=== PATIENT | female | born 1980 | race Caucasian/White ===

== ENCOUNTER 2016-08-15 12:20 | Emergency (ER) | payer BC ==
--- NOTE | 2016-08-15 12:59 | Emergency Department Record ---
History of Present Illness - General Chief Complaint: Hypertension Stated Complaint: HIGH BP Time Seen by Provider: 08/15/16 12:46 Source: Patient Mode of Arrival: Ambulatory Limitations: No limitations - History of Present Illness Initial Comments: The patient is here due to not feeling well today and finding her BP quite elevated. It was 175/120 at work today. The patient does have an extensive hx of HTN and was at one point on 3 different medicines for it. She recently stopped Norvasc and yesterday started on Adipex. She denies any CP, SOB, or DANNY but has had R hand tingling for one day. There has been no reported visual changes but she does have a mild RUIZ. The patient did take an Xanax prior to getting here to [facility]. The patient has been on Adipex in the past but had been on 2 or 3 HTN medicines at that time where now she is only on one. The patient states her BP is normally 150's/90. MD Complaint: Lightheadedness Onset/Timin -: Days(s) Timing: Gradual onset Description: Other History of Same: No History of Trauma: No Associated Symptoms: Other - [place] Coma Scale Eye Response: (4) Open spontaneously Motor Response: (6) Obeys commands Verbal Response: (5) Oriented [place] Total: 15 - Related Data Home Medications Medication Instructions Recorded Confirmed Last Taken Alprazolam [Xanax] 0.25 mg PO Q8H 08/15/16 08/15/16 08/15/16 Levothyroxine Sodium [Synthroid] 300 mcg PO DAILY 08/15/16 08/15/16 08/15/16 Losartan Potassium [Cozaar] 100 mg PO DAILY 08/15/16 08/15/16 08/15/16 Sertraline HCl [Zoloft] 50 mg PO DAILY 08/15/16 08/15/16 08/15/16 Previous Rx's Medication Instructions Recorded Amlodipine Besylate [Norvasc] 10 mg PO DAILY #30 tab 08/15/16 Allergies Allergy/AdvReac Type Severity Reaction Status Date / Time No Known Drug Allergies Allergy Verified 08/15/16 12:35 Travel Screening - Travel/Exposure Within Last 30 Days Have you traveled within the last 30 days?: No - Travel/Exposure Within Last Year Have you traveled outside the [place] in the last year?: No - Additonal Travel Details Have you been exposed to anyone with a communicable illness?: No - Travel Symptoms Symptom Screening: None Review of Systems Constitutional: Denies: Chills, Fever Eyes: Denies: Eye discharge ENT: Denies: Congestion Respiratory: Denies: Cough, Dyspnea Past Medical History - SOCIAL HISTORY Smoking Status: Never smoker Alcohol Use: Rare Drug Use: None - RESPIRATORY Hx Respiratory Disorders: No - CARDIOVASCULAR Hx Cardio Disorders: Yes Hx Hypertension: Yes - NEURO Hx Neuro Disorders: Yes Hx Headaches: Yes - GI Hx GI Disorders: No - Hx Genitourinary Disorders: No - ENDOCRINE Hx Endocrine Disorders: Yes Hx Diabetes: No Hx Thyroid Disease: Yes - MUSCULOSKELETAL Hx Musculoskeletal Disorders: No - PSYCH Hx Psych Problems: Yes Hx Anxiety: Yes - HEMATOLOGY/ONCOLOGY Hx Hematology/Oncology Disorders: No Family Medical History Any Significant Family History?: No Hx Diabetes: Mother Hx Heart Disease: Grandparents Physical Exam - General General Appearance: Alert, Oriented x3, Cooperative, No acute distress - Head Head exam: Atraumatic, Normocephalic, Normal inspection - Eye Eye exam: Normal appearance, PERRL - Neck Neck exam: Normal inspection, Full ROM. negative: Tenderness - Respiratory Respiratory exam: Normal lung sounds bilaterally. negative: Respiratory distress - Cardiovascular Cardiovascular Exam: Regular rate, Normal rhythm, Normal heart sounds - GI/Abdominal GI/Abdominal exam: Soft, Normal bowel sounds. negative: Tenderness - Extremities Extremities exam: Normal inspection, Full ROM, Normal capillary refill. negative: Tenderness - Neurological Neurological exam: Alert, Motor sensory deficit (Motor is 5/5 upper and lower ext. Sensory shows very slightly decreased sensation to the R hand only but only subjectively. There is no weakness.), Normal gait, Oriented X3, Other (Neg Drift and [place].). negative: Abnormal gait, Altered - Psychiatric Psychiatric exam: negative: Anxious, Depressed - Skin Skin exam: negative: Rash Course Vital Signs 08/15/16 12:28 Temperature 97.8 F Pulse Rate 100 H Respiratory 18 Rate Blood Pressure 168/98 Pulse Ox 97 - Reevaluation(s) Reevaluation #1: The patient is doing better at this time. Her repeat BP is now 150/91. She is resting comfortably. 08/15/16 13:25 Reevaluation #2: The patient is doing much better. She denies any RUIZ, CP, visual changes or any weakness. Her BP is now back to her normal levels. I did explain that her lab tests were WNL's. She is to F/U with her PCP for recheck later this week or early next week. We will restart her Norvasc and stop the Adipex. 08/15/16 13:50 Reevaluation #3: I did attempt multiple times to order a head CT on the patient due to the R hand tingling. The patient repeatedly refused. I explained to her by NOT doing the CT I will not have properly evaluated her R hand tingling. Due to the fact she has no other symptoms or signs I do doubt any cerebrovascular cause but did explain by NOT doing the test she has not been properly evaluated. Because of that we could not be held liable for NOT working up her hand issues and ruling out a stroke. 08/15/16 13:54 Medical Decision Making - Data Complexity MDM Data: Labs Ordered and/or Reviewed, EKG Ordered and/or Reviewed - Lab Data Result diagrams: 08/15/16 13:16 08/15/16 13:16 - EKG Data -: EKG Interpreted by Me EKG: No Acute Changes, Normal EKG Disposition Disposition: Discharge Clinical Impression: Hypertension Qualifiers: Hypertension type: essential hypertension Qualified Code(s): I10 - Essential ( primary) hypertension Disposition: Home, Self-Care Condition: (1) Good Instructions: Hypertension (ED) Additional Instructions: Please continue your regular medicines and restart the Norvasc. Please see your PCP for recheck later this week or next week. Rest today and return to the ER for any bad headache, any chest pain, weakness or increased tingling in the hands. Prescriptions: Amlodipine Besylate [Norvasc] 10 mg PO DAILY #30 tab Forms: Patient Portal Access Time of Disposition: 13:54
[2016-08-15] MEDS ORDERED: ACETAMINOPHEN 325 MG TAB PO ONE (13:12)
[2016-08-15 13:24] LABS: BASO % 0.2 % (0-6); EOS % 1.2 % (0-6); GRAN % 73.7 % (47-80); HEMATOCRIT 40.7 % (35.0-47.0); HEMOGLOBIN 13.2 gm/dl (11.6-16.0); MEAN CELL VOLUME 84.1 fl (81-97); MEAN CORPUSCULAR HEMOGLOBIN 27.3 pg (27-33); MEAN CORPUSCULAR HGB CONC 32.4 g/dl (32-36); MEAN PLATELET VOLUME 10.8 fl (7.4-10.4); MONO % 5.9 % (0-9); PLATELET COUNT 255 K/uL (130-400); RED BLOOD COUNT 4.84 M/uL (3.80-5.40); RED CELL DISTRIBUTION WIDTH 14.2 % (11.5-14.5); WHITE BLOOD COUNT W/O DIFF 6.5 K/uL (4.2-12.2)
[2016-08-15 13:37] LABS: ALB/GLOB RATIO 1.6 (1.1-1.8); ALBUMIN 4.5 gm/dL (3.5-5.0); ALKALINE PHOSPHATASE 59 U/L (38-126); ALT/SGPT 42 U/L (9-52); ANION GAP 10.5 (7-16); AST/SGOT 35 U/L (14-36); BILIRUBIN,TOTAL 0.91 mg/dL (0.2-1.3); BLOOD UREA NITROGEN 8 mg/dL (7-17); CARBON DIOXIDE 23.5 mmol/L (22-30); CREATININE 0.7 mg/dL (0.52-1.04); EST GLOMERULAR FILTRATION RATE > 60 ml/min; GLUCOSE,RANDOM 83 mg/dL (70-110); TOTAL PROTEIN 7.3 gm/dL (6.3-8.2)
== END 2016-08-15 14:05 | disposition home or self-care (01) ==
LOC: ER 12:20
DX: I10 Essential (primary) hypertension (principal); R42 Dizziness and giddiness; R20.2 Paresthesia of skin; R51 Headache
CPT/HCPCS: 80053; 85025; 93005; 93010; 99284